=== PATIENT | female | born 2000 | race African-American/Black ===

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

== ENCOUNTER 2019-05-24 17:17 | Emergency (ER) | payer OTHER ==
[~2019-05-24] VITALS: Ht 167.6 cm; Wt 95.3 kg
[~2019-05-24 17:17] MED LIST changes: +HYDR-3164 PO; -HYDR-971 PO
[2019-05-24 17:28] VITALS: BP 145/84
[2019-05-24 17:52] LABS: BILIRUBIN,URINE NEGATIVE (NEG); CLARITY,URINE CLEAR; COLOR,URINE YELLOW; NITRITE,URINE NEGATIVE (NEG); PROTEIN,URINE NEGATIVE (NEG-TRACE)
[2019-05-24 18:00] LABS: BACTERIA,URINE FEW /HPF (0-FEW); RBC,URINE 0 /HPF (0-2); SQUAMOUS EPITHELIAL CELL,UR FEW /LPF; WBC,URINE OCC /HPF (0-4)
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
[2019-05-24] MEDS: cefTRIAXone IM 250 MG VIAL IM ONE (18:50)
[2019-05-24] MEDS: AZITHROMYCIN 250 MG TABLET. PO ONE (18:50)
[2019-05-24] MEDS: ONDANSETRON ODT 4 MG TAB.RAPDIS. PO ONE (18:50)
[2019-05-24 18:56] LABS: U PREG PATIENT NEGATIVE (NEG)
[2019-05-24] MEDS ORDERED: METR-34 PO (18:58)
[2019-05-26 17:15] LABS: GC PROBE Negative (Negative)
== END 2019-05-24 19:02 | disposition home or self-care (01) ==
LOC: ER 17:17
DX: N76.0 Acute vaginitis (principal); B96.89 Other specified bacterial agents as the cause of diseases classified elsewhere; R10.31 Right lower quadrant pain; R10.32 Left lower quadrant pain; Z91.013 Allergy to seafood
CPT/HCPCS: 81001; 81025; 87086; 87491; 87591; 96372; 99284; J0696; Q0111; Q0144; Q0162

== ENCOUNTER 2019-09-06 11:59 | Emergency (ER) | payer OTHER ==
[~2019-09-06] VITALS: Ht 167.6 cm; Wt 104.3 kg
[~2019-09-06 11:59] MED LIST changes: +METR-34 PO
[2019-09-06 12:25] VITALS: BP 131/63
[2019-09-06] MEDS ORDERED: HYDR15CR20 TP (12:57)
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
== END 2019-09-06 13:24 | disposition home or self-care (01) ==
LOC: ER 11:59
DX: N92.6 Irregular menstruation, unspecified (principal); L20.9 Atopic dermatitis, unspecified; Z91.013 Allergy to seafood
CPT/HCPCS: 81025; 99282; 99283

== ENCOUNTER 2020-01-19 13:40 | Emergency (ER) | payer OTHER ==
[~2020-01-19] VITALS: Ht 167.6 cm; Wt 105.4 kg
[~2020-01-19 13:40] MED LIST changes: +HYDR15CR20 TP; +ONDA4TAB12 PO
[2020-01-19 14:07] VITALS: BP 142/86
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
[2020-01-19 14:37] LABS: INFLUENZA A PATIENT NEGATIVE (NEGATIVE); INFLUENZA B PATIENT NEGATIVE (NEGATIVE)
[2020-01-19] MEDS ORDERED: AMOX500C PO (15:07)
== END 2020-01-19 15:24 | disposition home or self-care (01) ==
LOC: ER 13:40
DX: H66.002 Acute suppurative otitis media without spontaneous rupture of ear drum, left ear (principal); M79.10 Myalgia, unspecified site; R11.0 Nausea; Z91.013 Allergy to seafood
CPT/HCPCS: 87070; 87804; 87880; 99283

== ENCOUNTER 2020-01-26 23:01 | Emergency (ER) | payer OTHER ==
[~2020-01-26] VITALS: Ht 167.6 cm; Wt 105.5 kg
[~2020-01-26 23:01] MED LIST changes: +AMOX500C PO
[2020-01-26 23:18] VITALS: BP 140/98
[2020-01-27] MEDS ORDERED: HYDR-3164 PO (00:47)
[2020-01-27] MEDS ORDERED: AMOX1TAB61 PO (00:47)
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
== END 2020-01-27 00:55 | disposition home or self-care (01) ==
LOC: ER 23:01
DX: H66.003 Acute suppurative otitis media without spontaneous rupture of ear drum, bilateral (principal); Z98.890 Other specified postprocedural states; Z91.013 Allergy to seafood
CPT/HCPCS: 99283

== ENCOUNTER 2020-02-27 10:17 | Emergency (ER) | payer OTHER ==
[~2020-02-27] VITALS: Ht 167.6 cm; Wt 104.5 kg
[~2020-02-27 10:17] MED LIST changes: +AMOX1TAB61 PO
[2020-02-27 10:21] VITALS: BP 139/77
[2020-02-27] MEDS ORDERED: CEPH-264 PO (10:39)
[2020-02-27] MEDS ORDERED: METR500T PO (10:39)
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
== END 2020-02-27 10:50 | disposition home or self-care (01) ==
LOC: ER 10:17
DX: L02.412 Cutaneous abscess of left axilla (principal); N89.8 Other specified noninflammatory disorders of vagina; Z91.013 Allergy to seafood
CPT/HCPCS: 99283

== ENCOUNTER 2020-04-25 12:53 | Emergency (ER) | payer OTHER ==
[~2020-04-25] VITALS: Ht 167.6 cm; Wt 97.7 kg
[~2020-04-25 12:53] MED LIST changes: +CEPH-264 PO
[2020-04-25 13:08] VITALS: BP 141/69
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
[2020-04-25 13:18] LABS: BILIRUBIN,URINE NEGATIVE (NEG); CLARITY,URINE CLEAR; COLOR,URINE YELLOW; NITRITE,URINE NEGATIVE (NEG); PROTEIN,URINE NEGATIVE (NEG-TRACE)
[2020-04-25 13:24] LABS: SQUAMOUS EPITHELIAL CELL,UR MOD /LPF
[2020-04-25 13:25] LABS: BACTERIA,URINE FEW /HPF (0-FEW); RBC,URINE 0 /HPF (0-2)
== END 2020-04-25 13:31 | disposition home or self-care (01) ==
LOC: ER 12:53
DX: N91.2 Amenorrhea, unspecified (principal); R11.0 Nausea; Z91.013 Allergy to seafood
CPT/HCPCS: 81001; 81025; 99283

== ENCOUNTER 2020-05-26 11:13 | Emergency (ER) | payer OTHER ==
[~2020-05-26] VITALS: Ht 167.6 cm; Wt 105.9 kg
[2020-05-26 11:50] LABS: BILIRUBIN,URINE NEGATIVE (NEG); CLARITY,URINE CLEAR; COLOR,URINE YELLOW; NITRITE,URINE NEGATIVE (NEG); PROTEIN,URINE NEGATIVE (NEG-TRACE); UROBILINOGEN,URINE 0.2 mg/dL (0.2 mg/dL)
[2020-05-26 12:12] LABS: RBC,URINE 0 /HPF (0-2); SQUAMOUS EPITHELIAL CELL,UR MOD /LPF
[2020-05-26 12:13] LABS: WBC,URINE 20-40 /HPF (0-4)
[2020-05-26 12:14] LABS: BACTERIA,URINE FEW /HPF (0-FEW)
[2020-05-26] MEDS ORDERED: cefTRIAXone IM 250 MG VIAL IM ONE (12:45)
[2020-05-26] MEDS ORDERED: AZITHROMYCIN 250 MG TABLET. PO ONE (12:45)
[2020-05-26] MEDS ORDERED: METR500T PO (13:05)
[2020-05-26 13:06] VITALS: BP 145/89
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
== END 2020-05-26 13:25 | disposition home or self-care (01) ==
LOC: ER 11:13
DX: A59.01 Trichomonal vulvovaginitis (principal); N76.0 Acute vaginitis; B96.89 Other specified bacterial agents as the cause of diseases classified elsewhere; Z20.818 Contact with and (suspected) exposure to other bacterial communicable diseases; Z98.890 Other specified postprocedural states; Z91.013 Allergy to seafood
CPT/HCPCS: 81001; 81025; 87086; 87491; 87591; 96372; 99284; J0696; Q0111

== ENCOUNTER 2020-07-13 16:46 | Emergency (ER) | payer OTHER ==
[~2020-07-13] VITALS: Ht 167.6 cm; Wt 107.2 kg
[2020-07-13 17:05] VITALS: BP 136/78
[2020-07-13 18:16] LABS: BILIRUBIN,URINE NEGATIVE (NEG); CLARITY,URINE CLEAR; COLOR,URINE YELLOW; NITRITE,URINE NEGATIVE (NEG); PH,URINE 7.5 (<5.0-8.0); PROTEIN,URINE NEGATIVE (NEG-TRACE)
[2020-07-13 18:26] LABS: BACTERIA,URINE 0 /HPF (0-FEW); RBC,URINE 0 /HPF (0-2); SQUAMOUS EPITHELIAL CELL,UR OCC /LPF; WBC,URINE 0 /HPF (0-4)
[2020-07-13] MEDS ORDERED: cefTRIAXone IM 250 MG VIAL IM ONE (19:00)
[2020-07-13] MEDS ORDERED: AZITHROMYCIN 250 MG TABLET. PO ONE (19:00)
[2020-07-13] MEDS ORDERED: metroNIDAZOLE 500 MG TABLET PO ONE (19:00)
[2020-07-13] MEDS ORDERED: METR500T PO (19:15)
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
[2020-07-14 23:09] LABS: GC PROBE Positive (Negative)
== END 2020-07-13 19:58 | disposition home or self-care (01) ==
LOC: ER 16:46
DX: N76.0 Acute vaginitis (principal); B96.89 Other specified bacterial agents as the cause of diseases classified elsewhere; Z20.2 Contact with and (suspected) exposure to infections with a predominantly sexual mode of transmission; Z91.013 Allergy to seafood
CPT/HCPCS: 81001; 81025; 87491; 87591; 96372; 99284; J0696; Q0111

== ENCOUNTER 2020-11-02 14:38 | Emergency (ER) | payer OTHER ==
[~2020-11-02] VITALS: Ht 167.6 cm; Wt 109.5 kg
[2020-11-02 15:07] VITALS: BP 140/67
[2020-11-02] MEDS ORDERED: AMOX875T PO (16:15)
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
== END 2020-11-02 16:34 | disposition home or self-care (01) ==
LOC: ER 14:38
DX: H66.002 Acute suppurative otitis media without spontaneous rupture of ear drum, left ear (principal); H66.41 Suppurative otitis media, unspecified, right ear; Z91.013 Allergy to seafood
CPT/HCPCS: 99283

== ENCOUNTER 2020-12-31 23:42 | Emergency (ER) | payer OTHER ==
[~2020-12-31] VITALS: Ht 167.6 cm; Wt 100.9 kg
[~2020-12-31 23:42] MED LIST changes: +AMOX875T PO
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
[2021-01-01 00:45] LABS: BILIRUBIN,URINE NEGATIVE (NEG); CLARITY,URINE CLEAR; COLOR,URINE YELLOW; NITRITE,URINE NEGATIVE (NEG); PH,URINE 6.5 (<5.0-8.0); PROTEIN,URINE NEGATIVE (NEG-TRACE)
[2021-01-01 00:58] LABS: BASO % 1 % (0-3); EOS # 0.4 x10^3/uL (0.0-0.7); EOS % 7 % (0-3); HEMATOCRIT 39.2 % (36.0-47.0); HEMOGLOBIN 13.3 g/dL (12.0-15.5); LYMPH % 40 % (24-48); MEAN CORPUSCULAR HEMOGLOBIN 28 pg (25-35); MEAN CORPUSCULAR HGB CONC 34 g/dL (31-37); MEAN CORPUSCULAR VOLUME 84 fL (79-100); MONO # 0.3 x10^3/uL (0.0-1.1); MONO % 6 % (0-9); NEUT # 2.4 x10^3/uL (1.8-7.7); NEUT % 47 % (31-73); PLATELET COUNT 208 x10^3/uL (140-400); RED BLOOD COUNT 4.68 x10^6/uL (3.50-5.40); RED CELL DISTRIBUTION WIDTH 13.2 % (11.5-14.5); WHITE BLOOD COUNT 5.2 x10^3/uL (4.0-11.0)
[2021-01-01 01:09] LABS: BACTERIA,URINE FEW /HPF (0-FEW); RBC,URINE 0 /HPF (0-2); WBC,URINE OCC /HPF (0-4)
[2021-01-01 01:16] LABS: CALCIUM 8.9 mg/dL (8.5-10.1); CREATININE 0.7 mg/dL (0.6-1.0); GFR 126.6; POTASSIUM 3.8 mmol/L (3.5-5.1)
[2021-01-01 01:21] LABS: ALBUMIN 3.3 g/dL (3.4-5.0); ALBUMIN/GLOBULIN RATIO 0.8 (1.0-1.7); MAGNESIUM 1.8 mg/dL (1.8-2.4); PHOSPHORUS 3.4 mg/dL (2.6-4.7); TOTAL BILIRUBIN 0.4 mg/dL (0.2-1.0); TOTAL PROTEIN 7.4 g/dL (6.4-8.2)
[2021-01-01 02:01] VITALS: BP 128/76
== END 2021-01-01 02:23 | disposition home or self-care (01) ==
LOC: ER 23:42
DX: R42 Dizziness and giddiness (principal); R35.0 Frequency of micturition; R20.2 Paresthesia of skin; Z91.013 Allergy to seafood
CPT/HCPCS: 36415; 80053; 81001; 81025; 83605; 83735; 83880; 84100; 84443; 84484; 85025; 86140; 99285-25

== ENCOUNTER 2021-01-31 14:27 | Emergency (ER) | payer OTHER ==
[~2021-01-31] VITALS: Ht 167.6 cm; Wt 112.0 kg
[2021-01-31] MEDS ORDERED: metroNIDAZOLE 500 MG TABLET PO ONE (14:45)
[2021-01-31] MEDS ORDERED: DOXYCYCLINE HYCLATE 100 MG TABLET PO ONE (14:45)
[2021-01-31] MEDS ORDERED: cefTRIAXone IM 500 MG VIAL. IM ONE (14:45)
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
[2021-01-31] MEDS ORDERED: DOXY100T PO (15:05)
[2021-01-31 15:40] VITALS: BP 154/89
== END 2021-01-31 15:40 | disposition home or self-care (01) ==
LOC: ER 14:27
DX: N89.8 Other specified noninflammatory disorders of vagina (principal); Z98.890 Other specified postprocedural states; Z91.013 Allergy to seafood
CPT/HCPCS: 81025; 96372; 99283; J0696

== ENCOUNTER 2022-01-21 15:52 | Emergency (ER) | payer OTHER ==
[~2022-01-21] VITALS: Ht 170.2 cm; Wt 112.2 kg
[~2022-01-21 15:52] MED LIST changes: +DOXY100T PO
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
[2022-01-21] MEDS ORDERED: IV NORMAL SALINE 1000ML BAG 1,000 ML IV ONE (17:45)
[2022-01-21] MEDS ORDERED: ONDANSETRON PF 4 MG/2 ML VIAL. IVP ONE (17:45)
[2022-01-21 17:48] LABS: BASO % 0 % (0-3); EOS % 0 % (0-3); HEMATOCRIT 41.7 % (36.0-47.0); HEMOGLOBIN 13.8 g/dL (12.0-15.5); LYMPH # 0.8 x10^3/uL (1.0-4.8); LYMPH % 21 % (24-48); MEAN CORPUSCULAR HEMOGLOBIN 28 pg (25-35); MEAN CORPUSCULAR HGB CONC 33 g/dL (31-37); MEAN CORPUSCULAR VOLUME 84 fL (79-100); MONO # 0.4 x10^3/uL (0.0-1.1); MONO % 10 % (0-9); NEUT # 2.8 x10^3/uL (1.8-7.7); NEUT % 69 % (31-73); PLATELET COUNT 207 x10^3/uL (140-400); RED BLOOD COUNT 4.99 x10^6/uL (3.50-5.40); RED CELL DISTRIBUTION WIDTH 13.5 % (11.5-14.5); WHITE BLOOD COUNT 4.1 x10^3/uL (4.0-11.0)
[2022-01-21 17:56] LABS: BILIRUBIN,URINE SMALL (NEG); CLARITY,URINE CLEAR; COLOR,URINE AMBER; NITRITE,URINE NEGATIVE (NEG); PH,URINE 5.5 (<5.0-8.0); PROTEIN,URINE NEGATIVE (NEG-TRACE)
[2022-01-21 17:58] LABS: CALCIUM 8.2 mg/dL (8.5-10.1); CREATININE 0.9 mg/dL (0.6-1.0); GFR 93.9
[2022-01-21 18:05] LABS: ALBUMIN 3.5 g/dL (3.4-5.0); ALBUMIN/GLOBULIN RATIO 0.7 (1.0-1.7); TOTAL BILIRUBIN 1.3 mg/dL (0.2-1.0); TOTAL PROTEIN 8.6 g/dL (6.4-8.2)
[2022-01-21 18:05] LABS: INFLUENZA A PATIENT NEGATIVE (NEGATIVE); INFLUENZA B PATIENT NEGATIVE (NEGATIVE)
[2022-01-21 18:29] LABS: HYALINE CASTS, URINE OCCASIONAL /HPF
[2022-01-21 18:30] LABS: BACTERIA,URINE 0 /HPF (0-FEW); WBC,URINE OCC /HPF (0-4)
[2022-01-21 18:44] VITALS: BP 119/68
[2022-01-21] MEDS ORDERED: POTASSIUM CHLORIDE 20 MEQ TABLET.ER. PO ONE (18:45)
[2022-01-21] MEDS ORDERED: ONDA4TAB12 PO (18:48)
== END 2022-01-21 19:33 | disposition home or self-care (01) ==
LOC: ER 15:52
DX: R11.2 Nausea with vomiting, unspecified (principal); E87.6 Hypokalemia; R19.7 Diarrhea, unspecified; R51.9 Headache, unspecified; Z91.013 Allergy to seafood
CPT/HCPCS: 80053; 81001; 81025; 83690; 85025; 87086; 87428; 96361; 96374; 99283; J2405; J7030